=== PATIENT | female | born 1980 | race Caucasian/White ===

== ENCOUNTER 2020-05-27 13:10 | Emergency (ER) | payer OTHER, SELFPAY ==
[2020-05-27 13:50] VITALS: BP 115/66; BP 126/89; PULSE 84; PULSE 96; RESP 16; TEMP 36.9; O2SAT 100; O2SAT 99; BMI 26.1
--- NOTE | 2020-05-27 13:53 | ED_ITS ---
HPI - Abdominal Pain General Chief Complaint: Abdominal Pain Stated Complaint: LLQ ABD PAIN Time Seen by Provider: 05/27/20 13:53 Source: EMS Mode of arrival: ambulatory Limitations: no limitations History of Present Illness HPI narrative: This is a 40-year-old female with prior medical history that is significant for PTSD, anxiety, depression and alcohol abuse as well as gastroesophageal reflux disease she is currently staying at a dual diagnosis facility in [place] where she has been there for a week or so presents today with complaint of left lower quadrant abdominal pain going on for past 2 days pain described as sharp and intermittent and also noted that she has some stool around for blood x2 episodes. She does report she has had hemorrhoids in the past during her , she denies any fever or chills. No upper respiratory symptoms. No chest pain shortness of breath. No dysuria. Her last bowel movement was this morning and it was formed and color was brown. There was string of blood and slight blood on the toilet paper when she wiped only. MD elicited complaint: abdominal pain Related Data Allergies Allergy/AdvReac Type Severity Reaction Status Date / Time No Known Allergies Allergy Verified 05/27/20 13:54 Review of Systems Review of Systems Constitutional: No Weight loss, No Fever, No Chills, No Night Sweats, No Fa tigue, No Malaise ENT/Mouth: No Hearing loss, No Ear Pain, No Nasal Congestion, No Sinus Pain, No Hoarseness, No sore throat, No Rhinorrhea, No Swallowing Difficulty Eyes: No Eye Pain, No Swelling, No Redness, No Foreign Body, No Discharge, No Vision Changes Cardiovascular: No Chest Pain, No SOB, No Dyspnea on Exertion, No Orthopnea, No Edema, No Palpitations Respiratory: No Cough, No Sputum, No Wheezing, No Smoke Exposure, No Dyspnea Gastrointestinal: No Nausea, No Vomiting, No Diarrhea, No Constipation, + abdominal Pain, No Hematochezia Genitourinary: no irregular bleeding, No Dysuria, No Urinary Frequency, No Hematuria, No Urinary Incontinence, No Urgency, No Flank Pain Musculoskeletal: No joint pain, No Myalgias, No Joint Swelling Skin: No Skin Lesions, No rash Neuro: No Weakness, No Numbness, No Paresthesias, No Loss of Consciousness, No Dizziness, No Headache Psych: No Social Issues Heme/Lymph: No Bruising, No Bleeding,No Lymphadenopathy Endocrine: No Polyuria, No Polydipsia, No Temperature Intolerance Yes all other systems are reviewed and are negative Physical Exam Vital Signs: Vital Signs: Last Vital Signs Temp 98.6 F 05/27/20 15:05 Pulse 90 05/27/20 15:05 Resp 18 05/27/20 15:05 BP 105/67 05/27/20 15:05 Pulse Ox 98 05/27/20 15:05 Body Mass Index 26.1 Reviewed Const: General: cooperative and healthy appearing; No acute distress or intoxicated appearing Nutritional Appearance: average body habitus Orientation/consciousness: patient oriented x3 HENMT: Head: Yes normal to inspection Ears: hearing grossly normal bilater ally Eyes: General: appearance normal, both eyes and all related structures Visual Waldrop: normal visual waldrop by confrontation Neck: Neck: Yes normal visual inspection, No positive Brudzinski's sign, No positive Kernig's sign and No tender Thyroid: Thyroid normal Chest: Chest palpation & inspection: normal inspection of the chest Resp: Effort & Inspection: normal respiratory effort Auscultation: clear to auscultation bilaterally Cardio: Jugular venous distension: no JVD Rhythm: regular rhythm Heart sounds: S1 normal heart sound present and S2 normal heart sound present GI: Inspection: Yes normal to inspection Palpation (GI): Soft to palpation, nontender and no guarding Percussion: Yes normal to percussion Auscultatio n: normal bowel sounds : General: Yes no CVA tenderness Back/Spine/Pelvis: Back: no CVA tenderness Skin: General skin exam: no rashes or lesions noted Neuro: General: patient oriented x3 Extrem: General: Yes normal to inspection Course Course Course Narrative: Labs overall stable. H&H within normal limits. Electrolytes without significant derangements. Test within normal limits. CT of the abdomen pelvis done to rule out acute: This was negative for acute diverticular i nfection and did show 2 small low-attenuation liver lesions. These are difficult to characterize due to small size but may represent cysts. Otherwise unremarkable exam. She has been resting comfortably here. She does have history of hemorrhoids I did advise her that it is recommended to do digital rectal exam for occult stool as well as evaluation for external/internal hemorrhoids and fissure she declined this. I she states she feels more comfortable following up with GI. I will give her follow-up for Dr. Martínez CLARK for follow-up. Clinically at this time has not had any bloody stools and h emodynamically stable without acute findings on the CT will discharge home with follow-up, return instructions. MDM - Abdominal Pain Differential Diagnosis Differential diagnosis: Likely abdominal pain, calculus of kidney, constipation, diverticulitis and gastroenteritis; Unlikely aortic dissection, acute appendicitis, bowel perforation, endometriosis, gastritis, mesenteric ischemia, ovarian cyst, pancreatitis, peptic ulcer disease, renal colic and small bowel obstruction Medical Records Attestation: I reviewed the patient's medical records. Lab Data Attestation: I reviewed the patient's lab results. Result diagrams: 05/27/20 14:12 05/27/20 14:12 Labs: Lab Results 05/27/20 05/27/20 05/27/20 Range/Units 14:12 14:12 14:12 WBC 5.5 (4.8-10.8) X10*3/uL RBC 4.37 (4.20-5.50) X10*6/uL Hgb 13.0 (12.0-16.0) g/dl Hct 39.1 (37-47) % MCV 89.5 (80-98) fL MCH 29.7 (27.0-33.0) pg MCHC 33.2 (31.0-35.0) g/dl RDW 11.9 (11.0-16.0) % Plt Count 264 (160-400) X10*3/uL MPV 10.2 (9.4-12.3) fL Immature Gran % (Auto) 0.2 (0.0-0.4) % Neut % (Auto) 68.1 (45-73) % Lymph % (Auto) 21.3 (20-40) % [place] % (Auto) 8.3 (2-11) % Eos % (Auto) 1.5 (0-4) % Baso % (Auto) 0.6 (0-2) % Lymph # (Auto) 1.2 (1.2-4.9) X10*3/uL [place] # (Auto) 0.5 (0.1-1.2) X10*3/uL Eos # (Auto) 0.1 (0.0-0.4) X10*3/uL Baso # (Auto) 0.0 (0.0-0.2) X10*3/uL Abs Immat Gran (auto) 0.01 (0.00-0.03) X10*3/uL Absolute Neuts (auto) 3.7 (2.0-8.3) X10*3/uL Absolute Nucleated RBC 0.000 (0.0-0.012) X10*3/uL Nucleated RBC % (auto) 0.0 (0.0-0.2) /100WBC PT 13.2 H (10.8-13.0) SEC INR 1.1 (0.9-1.1) APTT 32.8 (24.1-38.0) SEC Sodium 142 (135-145) mmol/L Potassium 4.2 (3.3-5.1) mmol/l Chloride 105 (96-108) mmol/L Carbon Dioxide 29 (22-29) mmol/L Anion Gap 12 (12-20) BUN 9 (9-16) mg/dL Creatinine 0.75 (0.5-1.4) mg/dL Estim Creat Clear Calc 97.7 Estimated GFR > 60 Random Glucose 89 (60-115) mg/dL Calcium 9.4 (8.4-10.2) mg/dL Total Bilirubin 0.3 (0.0-1.0) mg/dL AST 19 (5-31) U/L ALT 19 (0-31) U/L Alkaline Phosphatase 75 (39-117) U/L Total Protein 7.5 (6.5-8.0) g/dL Albumin 4.4 (3.5-5.0) g/dL Urine Color Urine Appearance Urine pH (5.0-8.0) Ur Specific [place] (1.005-1.025) Urine Protein (NEG-TRACE) MG/DL Urine Glucose (UA) (NEG) MG/DL Urine Ketones (NEG) MG/DL Urine Blood (NEG) Urine Nitrite (NEG) Ur Leukocyte Esterase (NEG) Urine RBC (0) /HPF Urine WBC (0-4) /HPF Ur Squamous Epith Cells /LPF Urine Bacteria /LPF Urine Test (NEGATIVE) 05/27/20 Range/Units 14:12 WBC (4.8-10.8) X10*3/uL RBC (4.20-5.50) X10*6/uL Hgb (12.0-16.0) g/dl Hct (37-47) % MCV (80-98) fL MCH (27.0-33.0) pg MCHC (31.0-35.0) g/dl RDW (11.0-16.0) % Plt Count (160-400) X10*3/uL MPV (9.4-12.3) fL Immature Gran % (Auto) (0.0-0.4) % Neut % (Auto) (45-73) % Lymph % (Auto) (20-40) % [place] % (Auto) (2-11) % Eos % (Auto) (0-4) % Baso % (Auto) (0-2) % Lymph # (Auto) (1.2-4.9) X10*3/uL [place] # (Auto) (0.1-1.2) X10*3/uL Eos # (Auto) (0.0-0.4) X10*3/uL Baso # (Auto) (0.0-0.2) X10*3/uL Abs Immat Gran (auto) (0.00-0.03) X10*3/uL Absolute Neuts (auto) (2.0-8.3) X10*3/uL Absolute Nucleated RBC (0.0-0.012) X10*3/uL Nucleated RBC % (auto) (0.0-0.2) /100WBC PT (10.8-13.0) SEC INR (0.9-1.1) APTT (24.1-38.0) SEC Sodium (135-145) mmol/L Potassium (3.3-5.1) mmol/l Chloride (96-108) mmol/L Carbon Dioxide (22-29) mmol/L Anion Gap (12-20) BUN (9-16) mg/dL Creatinine (0.5-1.4) mg/dL Estim Creat Clear Calc Estimated GFR Random Glucose (60-115) mg/dL Calcium (8.4-10.2) mg/dL Total Bilirubin (0.0-1.0) mg/dL AST (5-31) U/L ALT (0-31) U/L Alkaline Phosphatase (39-117) U/L Total Protein (6.5-8.0) g/dL Albumin (3.5-5.0) g/dL Urine Color YELLOW Urine Appearance HAZY Urine pH 6.5 (5.0-8.0) Ur Specific [place] 1.020 (1.005-1.025) Urine Protein NEG (NEG-TRACE) MG/DL Urine Glucose (UA) NEG (NEG) MG/DL Urine Ketones NEG (NEG) MG/DL Urine Blood TRACE (NEG) Urine Nitrite NEG (NEG) Ur Leukocyte Esterase NEG (NEG) Urine RBC 0-2 (0) /HPF Urine WBC 0 (0-4) /HPF Ur Squamous Epith Cells 2+ /LPF Urine Bacteria 1+ /LPF Urine Test NEGATIVE (NEGATIVE) Imaging Data Abdominal/pelvis CT with IV contrast: Radiologist's impression: [place] [id number] CT Scan Report Signed Patient: Óscar Jalloh#: [id number] : 1980Acct:[id number] Age/Sex: 40 / FADM Date: 05/27/20 Loc: .ED Attending Dr: Ordering Physician: Laron Alejandro NP Date of Service: 05/27/20 Procedure(s): CT abdomen pelvis w con Accession Number(s): [id number] cc: Laron Alejandro NP~ EXAMINATION: CT ABDOMEN AND PELVIS WITH CONTRAST CLINICAL INFORMATION: Left lower quadrant pain COMPARISON: Previous CT March 2015 TECHNIQUE: Multidetector volumetric images were obtained from the superior aspect of the liver through the pubic symphysis following administration 85 mL of Omnipaque 350 intravenous contrast. Sagittal and coronal reformatted images were obtained on the technologist's workstation. Oral contrast: Yes This CT examination was performed using dose optimization techniques as appropriate, variously including the following: *Automated exposure control *Adjustment of mA and/or kV according to patient size (this includes techniques or standardized protocols for targeted exams where dose is matched to indication/reason for exam; i.e. extremities or head) *Use of iterative reconstruction technique DLP: 625 mGy-cm FINDINGS: LUNG BASES: The visualized lung bases are unremarkable. LIVER, GALLBLADDER, AND BILIARY TREE: The liver is normal in size, shape and attenuation. There are 2 small low-attenuation liver lesions measuring 4 mm in the lateral segment of the left lobe and 3 mm in the medial segment of the left lobe axial image 11 and 15 series 3. These are nonvisualized on prior exam from 2015 however the liver was much lower in attenuation seen at that time. Liver is otherwise unremarkable. The gallbladder is unremarkable. There is no biliary duct dilatation. PANCREAS: Unremarkable. SPLEEN: Unremarkable. ADRENAL GLANDS: Unremarkable. KIDNEYS AND URETERS: The kidneys are normal in size, shape, and attenuation. No hydronephrosis, hydroureter, or calculi seen. No perinephric stranding. BLADDER: Unremarkable. GASTROINTESTINAL TRACT: The small and large bowel are unremarkable. The appendix is unremarkable. ABDOMINAL WALL: No significant hernia is appreciated. LYMPH NODES: Normal. VASCULAR: Unremarkable. PELVIC VISCERA: Unremarkable. OSSEOUS STRUCTURES: Unremarkable. CT/CT abdomen pelvis w con IMPRESSION: 2 small low-attenuation liver lesions. These are difficult to characterize due to small size but may represent cysts. Otherwise unremarkable exam. Dictated By:SHANNON BARBOSA MD Signed By:<Electronically signed by SHANNON BARBOSA MD in OV>05/27/20 1527 DD/ 1355 TD/TT: Crm Marketing Specialist: LYLE Discharge Plan Discharge Clinical Impression: Abdominal pain, Rectal bleed Patient Disposition: Home, Self-Care Instructions: Rectal Bleeding (ED), Abdominal Pain (ED) Referrals: Julio César Daley MD [Primary Care Provider] - 1 week Oliva Soliz MD [Physician] - 1 week [facility] Past Medical History Medical History (Updated 05/27/20 @ 16:26 by Laron Alejandro NP) Heart murmur Pulmonic stenosis Surgical History (Updated 05/27/20 @ 13:53 by Shireen Danielle) H/O heart surgery Social History Social History Alcohol intake: former Smoking Status: Current every day smoker Use of substances other than those prescribed or required for medical reasons: No Advance Directives: No Advance Directives Information Provided: No
[2020-05-27] MEDS: 0.9 % Sodium Chloride 1,000 ML 999 ML IV (14:21)
[2020-05-27] MEDS: Morphine Sulfate 4 MG/ML CARTRIDGE IVPUSH (14:22)
[2020-05-27 14:37] LABS: MANUAL DIFF FLAG NO
[2020-05-27 14:39] LABS: Glucose Urine UA NEG (NEG); Leukocyte Esterase Urine NEG (NEG); Nitrite Urine NEG (NEG); PH 6.5 (5.0-8.0); Urine Blood TRACE (NEG); Urine Ketones NEG (NEG); Urine Protein NEG (NEG-TRACE)
[2020-05-27 14:40] LABS: Basophils Percent Auto 0.6 % (0-2); Eosinophils Absolute Auto 0.1 X10*3/uL (0.0-0.4); Eosinophils Percent Auto 1.5 % (0-4); Hematocrit 39.1 % (37-47); Imm Gran Abs Auto 0.01 X10*3/uL (0.00-0.03); Imm Gran Pct Auto 0.2 % (0.0-0.4); Lymphocytes Absolute Auto 1.2 X10*3/uL (1.2-4.9); Lymphocytes Percent Auto 21.3 % (20-40); Mean Corpuscular HGB Conc 33.2 g/dl (31.0-35.0); Mean Corpuscular Hemoglobin 29.7 pg (27.0-33.0); Mean Corpuscular Volume 89.5 fL (80-98); Mean Platelet Volume 10.2 fL (9.4-12.3); Monocytes Absolute Auto 0.5 X10*3/uL (0.1-1.2); Monocytes Percent Auto 8.3 % (2-11); Neutrophils Absolute Auto 3.7 X10*3/uL (2.0-8.3); Neutrophils Percent Auto 68.1 % (45-73); Platelet Count 264 X10*3/uL (160-400); Red Blood Count 4.37 X10*6/uL (4.20-5.50); Red Cell Distribution Width 11.9 % (11.0-16.0); White Blood Count 5.5 X10*3/uL (4.8-10.8)
[2020-05-27 14:42] LABS: Appearance Urine HAZY; Color Urine YELLOW
[2020-05-27 14:43] LABS: INTERNATIONAL NORM RATIO 1.1 (0.9-1.1); Prothrombin Time 13.2 SEC (10.8-13.0); UPreg QC Valid YES; Urine Pregnancy NEGATIVE (NEGATIVE)
[2020-05-27 14:46] LABS: Partial Thromboplastin Time 32.8 SEC (24.1-38.0)
[2020-05-27 15:00] LABS: Alanine Aminotransferase 19 U/L (0-31); Albumin Level 4.4 g/dL (3.5-5.0); Alkaline Phosphatase 75 U/L (39-117); Anion Gap 12 (12-20); Aspartate Amino Transferase 19 U/L (5-31); Bilirubin Total 0.3 mg/dL (0.0-1.0); Blood Urea Nitrogen 9 mg/dL (9-16); Calcium 9.4 mg/dL (8.4-10.2); Carbon Dioxide 29 mmol/L (22-29); Chloride 105 mmol/L (96-108); Creatinine Clr Calc Pharmacy 97.7; Estimated Glomerular Filt Rate > 60; Glucose Random 89 mg/dL (60-115); Potassium 4.2 mmol/l (3.3-5.1); Sodium 142 mmol/L (135-145); Total Protein 7.5 g/dL (6.5-8.0)
[2020-05-27 15:05] VITALS: BP 105/67; PULSE 90; RESP 18; TEMP 37; O2SAT 98
[2020-05-27 15:06] LABS: Bacteria Urine 1+ /LPF; RBC Urine 0-2 /HPF (0); Squamous Epithelial Cell Urine 2+ /LPF; WBC Urine 0 /HPF (0-4)
[2020-05-27] MEDS: iohexoL 350 MG/ML 100 ML INFUS..BTL IV (15:15)
--- NOTE | 2020-05-27 16:08 | PC.NURSE ---
patient noted comfortable. no present distress. awaitig ct results for dispo
== END 2020-05-27 17:02 | disposition home or self-care (01) ==
PROVIDERS: Nurse Practitioner Primary Care; Emergency Provider Emergency Medicine Emergency Medical Services; PCP Internal Medicine
DX: K92.1 Melena (principal); R10.824 Left lower quadrant rebound abdominal tenderness; F17.200 Nicotine dependence, unspecified, uncomplicated; Z71.6 Tobacco abuse counseling; Z20.822 Contact with and (suspected) exposure to COVID-19
CPT/HCPCS: 36415; 74177; 80053; 81001; 81025; 85025; 85610; 85730; 96361; 96374; 99284; J2270; Q9967

== ENCOUNTER 2022-03-26 21:31 | Inpatient (IN) | payer OTHER, SELFPAY ==
--- NOTE | 2022-03-26 23:18 | PC.NURSE ---
Nursing admission note: 41 year old female DX: Unspecified Depressive disorder, Alcohol use disorder. Referred for admission by CARE team. Patient presented to [facility] due to increased anxiety, and panic . Patient engages easily, presents with good eye contact, dressed in hospital attire. Denies SI/HI plan or intent at this time. History of suicide attempts by hanging and cutting wrists. Reports increased stress and anxiety after receiving notification her ex bf was due to have parole hearing in May. Reports he is currently incarcerated due to attempted murder. States she plans to attend his hearing via Zoom. Patient is A+O x4, thoughts are clear, linear and organized. Denies perceptual disturbances at this time. Patient reports increased alcohol use in past 2 weeks due to increase stress. History of detox and recovery treatment. History (per crisis eval) of hallucinations and alcohol related seizure in November 2021. Patient denies other drug use. Reports difficulty falling and maintaining sleep, increase in nightmares. History of trauma. Denies current appetite disturbance. Medical history includes plaque psoriasis, heart mumur, and heart surgery in past. Covid negative. TOX screen negative. See nursing assessment for details, crisis eval for further details. Placed on CIWA protocol. Unit safety checks implemented. Patient oriented to unit, signed HANDY.
[2022-03-26 23:58] VITALS: BP 127/70; PULSE 82; RESP 16; O2SAT 99
--- NOTE | 2022-03-27 | ECG_ITS ---
Test Reason : alcohol use, depression Blood Pressure : / mmHG Vent. Rate : 086 BPM Atrial Rate : 086 BPM P-R Int : 154 ms QRS Dur : 076 ms QT Int : 362 ms P-R-T Axes : 054 062 078 degrees QTc Int : 433 ms Normal sinus rhythm Low voltage QRS Normal ECG No previous ECGs available Referred By: Jazlyn Brewster Electronically Signed By:HEMANT WILSON MD
[2022-03-27 06:40] VITALS: BP 123/66; PULSE 90; RESP 18; O2SAT 98
[2022-03-27] MEDS: LORazepam 1 MG TABLET PO ×2 (06:47→21:29)
[2022-03-27] MEDS: Omeprazole 20 MG CAPSULE.DR 60 MG PO (06:47)
[2022-03-27] MEDS: Ibuprofen 600 MG TABLET PO ×2 (06:48→21:30)
[2022-03-27] MEDS: Thiamine HCL 100 MG TABLET 50 MG PO (09:12)
[2022-03-27] MEDS: Folic Acid 1 MG TABLET PO (09:12)
[2022-03-27] MEDS: DULoxetine HCl 60 MG CAPSULE.DR PO (09:12)
[2022-03-27 09:45] LABS: Estimated Average Glucose 85 mg/dL; Hemoglobin A1c % 4.6 %
[2022-03-27 09:50] LABS: Cholesterol 259 mg/dL; HDL Cholesterol 64 mg/dL; LDL Cholesterol Calculated 174 mg/dl; Triglycerides 109 mg/dL
[2022-03-27 10:15] LABS: Free T4 (Free Thyroxine) 1.04 ng/dL (0.71-1.85); Thyroid Stimulating Hormone 1.81 uIU/mL (0.32-4.0)
[2022-03-27 10:28] LABS: Folate 10.3 ng/mL (> or = 4.0); Vitamin B12 550 pg/mL (200-900)
[2022-03-27] MEDS: Metoprolol Succinate ER 12.5 MG HALFTAB.ER.24H PO (11:47)
[2022-03-27] MEDS: Nicotine 21 MG PATCH.TD24 TRANSDERMA (11:47)
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
[2022-03-27 16:35] VITALS: BP 126/71; PULSE 86; RESP 16; TEMP 36.2; O2SAT 96
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
[2022-03-27 20:15] VITALS: BP 122/78; PULSE 90; RESP 16; TEMP 36.9; O2SAT 97
[2022-03-27] MEDS: cloNIDine HCL 0.1 MG TABLET PO (21:29)
[2022-03-28 09:15] VITALS: BP 124/72; PULSE 97; RESP 18; TEMP 36.5; O2SAT 96
[2022-03-28] MEDS: Folic Acid 1 MG TABLET PO (09:23)
[2022-03-28] MEDS: DULoxetine HCl 60 MG CAPSULE.DR PO (09:23)
[2022-03-28] MEDS: Metoprolol Succinate ER 12.5 MG HALFTAB.ER.24H PO (09:23)
[2022-03-28] MEDS: Thiamine HCL 100 MG TABLET 50 MG PO (09:23)
[2022-03-28] MEDS: Nicotine 21 MG PATCH.TD24 TRANSDERMA (09:23)
[2022-03-28] MEDS: Omeprazole 20 MG CAPSULE.DR 60 MG PO (09:23)
[2022-03-28 09:28] LABS: Alanine Aminotransferase 26 U/L (0-31); Albumin Level 4.1 g/dL (3.5-5.0); Alkaline Phosphatase 121 U/L (39-117); Anion Gap 12 (12-20); Aspartate Amino Transferase 83 U/L (5-31); Bilirubin Total 1.8 mg/dL (0.0-1.0); Blood Urea Nitrogen 8 mg/dL (9-16); Calcium 9.7 mg/dL (8.4-10.2); Carbon Dioxide 26 mmol/L (22-29); Chloride 103 mmol/L (96-108); Estimated Glomerular Filt Rate > 60; Glucose Random 93 mg/dL (60-115); Potassium 4.4 mmol/L (3.3-5.1); Sodium 137 mmol/L (135-145)
[2022-03-28] MEDS: LORazepam 1 MG TABLET PO ×2 (09:34→21:58)
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
[2022-03-28 17:44] VITALS: BP 117/62; PULSE 78; TEMP 36.5; O2SAT 98
[2022-03-28 21:49] VITALS: BP 117/84; PULSE 89; RESP 18; TEMP 36.4; O2SAT 100
[2022-03-28] MEDS: Ibuprofen 600 MG TABLET PO (21:57)
[2022-03-28] MEDS: cloNIDine HCL 0.1 MG TABLET PO (21:58)
[2022-03-28] MEDS: Gabapentin 100 MG CAPSULE PO (21:59)
[2022-03-29 09:15] VITALS: BP 108/72; PULSE 71; RESP 18; TEMP 36.3; O2SAT 98
[2022-03-29] MEDS: Nicotine 21 MG PATCH.TD24 TRANSDERMA (09:24)
[2022-03-29] MEDS: Gabapentin 100 MG CAPSULE PO ×3 (09:25→21:50)
[2022-03-29] MEDS: Thiamine HCL 100 MG TABLET 50 MG PO (09:25)
[2022-03-29] MEDS: Folic Acid 1 MG TABLET PO (09:25)
[2022-03-29] MEDS: Omeprazole 20 MG CAPSULE.DR 60 MG PO (09:25)
[2022-03-29] MEDS: DULoxetine HCl 60 MG CAPSULE.DR PO (09:25)
[2022-03-29] MEDS: Metoprolol Succinate ER 12.5 MG HALFTAB.ER.24H PO (09:25)
[2022-03-29 13:55] VITALS: BP 108/75; PULSE 79; RESP 20; O2SAT 100
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
[2022-03-29 21:30] VITALS: BP 108/68; PULSE 77; RESP 16; TEMP 36.5; O2SAT 98
[2022-03-29] MEDS: cloNIDine HCL 0.1 MG TABLET PO (21:50)
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
--- NOTE | 2022-03-30 04:01 | PC.NURSE ---
Patient requested nurse not to wake her at 0630 for her Prilosec.
[2022-03-30 08:25] VITALS: BP 102/66; PULSE 80; RESP 16; TEMP 36.3; O2SAT 100
[2022-03-30] MEDS: Nicotine 21 MG PATCH.TD24 TRANSDERMA (08:33)
[2022-03-30] MEDS: DULoxetine HCl 60 MG CAPSULE.DR PO (08:34)
[2022-03-30] MEDS: Metoprolol Succinate ER 12.5 MG HALFTAB.ER.24H PO (08:34)
[2022-03-30] MEDS: Omeprazole 20 MG CAPSULE.DR 60 MG PO (08:34)
[2022-03-30] MEDS: Gabapentin 100 MG CAPSULE PO ×3 (08:34→21:58)
[2022-03-30] MEDS: Folic Acid 1 MG TABLET PO (08:34)
[2022-03-30] MEDS: Thiamine HCL 100 MG TABLET 50 MG PO (09:09)
[2022-03-30] MEDS: Acetaminophen 325 MG TABLET 650 MG PO (09:09)
[2022-03-30] MEDS: Milk of Magnesia 30 ML ORAL.SUSP PO (19:08)
[2022-03-30 21:55] VITALS: BP 104/66; PULSE 88; RESP 16; TEMP 36.6; O2SAT 99
[2022-03-30] MEDS: cloNIDine HCL 0.1 MG TABLET PO (21:58)
[2022-03-30] MEDS: lamoTRIgine 25 MG TABLET PO (21:58)
[2022-03-30] MEDS: Ibuprofen 600 MG TABLET PO (21:59)
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
[2022-03-31 06:00] VITALS: BP 82/53; PULSE 97; RESP 20; TEMP 36.3; O2SAT 97
[2022-03-31 08:30] VITALS: BP 82/53; PULSE 71; RESP 16; TEMP 36.3; O2SAT 97
[2022-03-31] MEDS: Folic Acid 1 MG TABLET PO (08:42)
[2022-03-31] MEDS: Thiamine HCL 100 MG TABLET 50 MG PO (08:42)
[2022-03-31] MEDS: Omeprazole 20 MG CAPSULE.DR 60 MG PO (08:43)
[2022-03-31] MEDS: DULoxetine HCl 60 MG CAPSULE.DR PO (08:43)
[2022-03-31] MEDS: Nicotine 21 MG PATCH.TD24 TRANSDERMA (08:44)
[2022-03-31] MEDS: Gabapentin 100 MG CAPSULE PO ×3 (09:21→21:47)
[2022-03-31 10:45] VITALS: BP 100/64; PULSE 76; RESP 16
[2022-03-31 20:30] VITALS: BP 109/56; PULSE 74; RESP 16; TEMP 36.7; O2SAT 100
[2022-03-31] MEDS: cloNIDine HCL 0.1 MG TABLET PO (21:46)
[2022-03-31] MEDS: lamoTRIgine 25 MG TABLET PO (21:46)
[2022-04-01 08:55] VITALS: BP 86/54; PULSE 88; RESP 18; TEMP 36.6; O2SAT 98
[2022-04-01] MEDS: Omeprazole 20 MG CAPSULE.DR 60 MG PO (08:59)
[2022-04-01] MEDS: DULoxetine HCl 60 MG CAPSULE.DR PO (09:01)
[2022-04-01] MEDS: Folic Acid 1 MG TABLET PO (09:01)
[2022-04-01] MEDS: Gabapentin 100 MG CAPSULE PO ×3 (09:01→22:02)
[2022-04-01] MEDS: Thiamine HCL 100 MG TABLET 50 MG PO (09:02)
[2022-04-01] MEDS: Nicotine 21 MG PATCH.TD24 TRANSDERMA (09:02)
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
[2022-04-01 21:59] VITALS: BP 91/54; PULSE 67; RESP 16; TEMP 36.5; O2SAT 99
[2022-04-01] MEDS: cloNIDine HCL 0.1 MG TABLET PO (22:02)
[2022-04-01] MEDS: lamoTRIgine 25 MG TABLET PO (22:02)
[2022-04-01] MEDS: Acamprosate Calcium 333 MG TABLET.DR 666 MG PO (22:02)
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
[2022-04-02 08:38] VITALS: BP 93/53; PULSE 66; RESP 16; TEMP 36.4; O2SAT 98
[2022-04-02] MEDS: DULoxetine HCl 60 MG CAPSULE.DR PO (08:39)
[2022-04-02] MEDS: Thiamine HCL 100 MG TABLET 50 MG PO (08:39)
[2022-04-02] MEDS: Folic Acid 1 MG TABLET PO (08:39)
[2022-04-02] MEDS: Acamprosate Calcium 333 MG TABLET.DR 666 MG PO (08:39)
[2022-04-02] MEDS: Omeprazole 20 MG CAPSULE.DR 60 MG PO (08:40)
[2022-04-02] MEDS: Nicotine 21 MG PATCH.TD24 TRANSDERMA (08:40)
[2022-04-02] MEDS: Gabapentin 100 MG CAPSULE PO (08:40)
--- NOTE | 2022-04-02 11:25 | PC.NURSE ---
Patient easily engaged. Full range of affect. Anxious but eager for discharge. Reports hospitalization has been helpful. Reports feeling stable. Denies SI/HI plan or intent at this time. No reported or observed psychosis. Endorses mild cravings I had a drug dream last night . Has supports and plan in place. Motivated for sobriety. Discharge paperwork reviewed, appointments reviewed, reports understanding. Medications reviewed, reports understanding. Crisis numbers and AA number provided to patient. All belongings taken with patient.
== END 2022-04-02 11:00 | disposition home or self-care (01) | DRG 756 ==
PROVIDERS: Physician Assistant; Registered Nurse; Admitting Provider Psychiatry & Neurology Psychiatry; PCP Internal Medicine; Visit Provider Psychiatry & Neurology Psychiatry
DX: F41.1 Generalized anxiety disorder (principal); Z91.14 Patient's other noncompliance with medication regimen; F10.10 Alcohol abuse, uncomplicated; F32.A Depression, unspecified; F17.210 Nicotine dependence, cigarettes, uncomplicated; F43.10 Post-traumatic stress disorder, unspecified; Z62.810 Personal history of physical and sexual abuse in childhood; Z71.6 Tobacco abuse counseling; Z23 Encounter for immunization; Z79.899 Other long term (current) drug therapy
CPT/HCPCS: 36415; 80053; 80061; 82607; 82746; 83036; 83735; 84439; 84443; 90686; 93005